=== PATIENT | female | born 1950 | race African-American/Black ===

== ENCOUNTER 2017-03-23 23:57 | Inpatient (IN) | payer MEDICARE, MEDICAID ==
[~2017-03-23] VITALS: Ht 170.2 cm; Wt 78.7 kg
[2017-03-24] MEDS ORDERED: HALOPERIDOL LACTATE 5 MG/ML VIAL IM ONE (00:15)
[2017-03-24] MEDS ORDERED: LORazepam 2 MG/ML VIAL IM ONE (00:15)
[2017-03-24] MEDS ORDERED: DiphenhydrAMINE HCL 50 MG/ML VIAL IM ONE (00:15)
[2017-03-24 00:27] LABS: BASOPHILS # (AUTO) 0.01 K/uL (0.00-0.20); BASOPHILS % (AUTO) 0.2 % (0.0-2.0); EOSINOPHILS % (AUTO) 0 % (1.0-6.0); HEMOGLOBIN 13.2 g/dL (12.0-16.0); LYMPHOCYTES # (AUTO) 1.3 K/uL (1.0-4.8); LYMPHOCYTES % (AUTO) 23.9 % (22.0-44.0); MEAN CORPUSCULAR HGB CONC 31.5 G/dL (31.0-37.0); MEAN CORPUSCULAR VOLUME 83 fL (80-100); MONOCYTES # (AUTO) 0.4 K/uL (0.1-1.0); MONOCYTES % (AUTO) 7.8 % (2.0-9.0); NEUTROPHILS # (AUTO) 3.8 K/uL (1.8-7.7); NEUTROPHILS % (AUTO) 68.1 % (40.0-70.0); PLATELET COUNT (AUTO) 180 K/uL (150-450); RED BLOOD CELL COUNT(AUTO) 5.09 MIL/uL (4.00-5.20); RED CELL DISTRIBUTION WIDTH 13.9 % (11.5-14.5)
[2017-03-24 00:37] LABS: ANION GAP 12 mmol/L (8-16); CALCIUM, TOTAL 9.8 mg/dL (8.8-10.5); CARBON DIOXIDE 27 mmol/L (22-29); CHLORIDE 100 mmol/L (98-107); CREATININE 0.96 mg/dL (0.60-1.30); GLOMERULAR FILTR. RATE CALC > 60 mL/min (>60); GLUCOSE,RANDOM 101 mg/dL (70-110); POTASSIUM 3.8 mmol/L (3.5-5.1); SODIUM SERUM 139 mmol/L (136-145); UREA NITROGEN, BLOOD 12 mg/dL (7-18)
[2017-03-24 00:43] LABS: ALANINE AMINOTRANSFERASE 40 U/L (12-78); ALBUMIN 4.5 g/dL (3.4-5.0); ALKALINE PHOSPHATASE 66 U/L (46-116); ASPARTATE AMINOTRANSFERASE 70 U/L (15-37); BILIRUBIN,TOTAL 0.8 mg/dL (0.1-1.0)
[2017-03-24 01:01] LABS: PLATELET MORPHOLOGY COMMENT GIANT PLTS PRESENT
[2017-03-24] MEDS ORDERED: HALOPERIDOL 5 MG TABLET PO PRN (01:15)
[2017-03-24] MEDS ORDERED: ZOLPIDEM TARTRATE 10 MG TABLET PO PRN (01:15)
[2017-03-24 04:08] VITALS: BP 111/74
[2017-03-24] MEDS ORDERED: PNEUMOCOCCAL VACCINE POLYVALENT 0.5 ML VIAL [PPSV23] IM ONE (05:00)
[2017-03-24 08:05] VITALS: BP 140/64
[2017-03-24] MEDS: RisperiDONE 1 MG TABLET PO SCH (16:35)
[2017-03-24 17:31] VITALS: BP 130/75
[2017-03-25 05:46] VITALS: BP 142/84
[2017-03-25 08:36] LABS: CHOL/HDL RATIO 2.2 (3.9-5.7)
[2017-03-25] MEDS: RisperiDONE 1 MG TABLET PO SCH ×2 (08:42→16:30)
[2017-03-25 10:05] VITALS: BP 168/97
[2017-03-25 17:26] VITALS: BP 138/85
[2017-03-25] MEDS: LORazepam 2 MG TABLET PO PRN (19:05)
[2017-03-26 08:00] VITALS: BP 130/81
[2017-03-26] MEDS: RisperiDONE 1 MG TABLET PO SCH ×2 (08:01→17:49)
[2017-03-26 16:00] VITALS: BP 150/91
[2017-03-26] MEDS: OXcarbazepine 300 MG TABLET PO SCH (17:49)
[2017-03-27 05:21] VITALS: BP 143/96
[2017-03-27] MEDS: OXcarbazepine 300 MG TABLET PO SCH ×2 (08:52→16:06)
[2017-03-27] MEDS: RisperiDONE 1 MG TABLET PO SCH ×2 (08:52→16:06)
[2017-03-27 09:24] VITALS: BP 149/80
[2017-03-27 16:00] VITALS: BP 153/95
[2017-03-27] MEDS: LORazepam 2 MG TABLET PO PRN (16:07)
[2017-03-28] MEDS: RisperiDONE 1 MG TABLET PO SCH ×2 (08:26→16:26)
[2017-03-28] MEDS: OXcarbazepine 300 MG TABLET PO SCH ×2 (08:26→16:26)
[2017-03-28 09:10] VITALS: BP 150/97
[2017-03-28] MEDS ORDERED: CloNIDine HCL 0.1 MG TABLET PO PRN (13:30)
[2017-03-28 17:16] VITALS: BP 160/91
[2017-03-29 06:22] VITALS: BP 147/94
[2017-03-29 08:15] VITALS: BP 171/92
[2017-03-29] MEDS: OXcarbazepine 300 MG TABLET PO SCH ×2 (09:18→17:25)
[2017-03-29] MEDS: RisperiDONE 1 MG TABLET PO SCH ×2 (09:18→17:25)
[2017-03-29 20:00] VITALS: BP 131/93
[2017-03-30] MEDS: RisperiDONE 1 MG TABLET PO SCH ×2 (08:16→16:48)
[2017-03-30] MEDS: OXcarbazepine 300 MG TABLET PO SCH ×2 (08:16→16:48)
[2017-03-30 09:29] VITALS: BP 132/87
[2017-03-30 16:00] VITALS: BP 151/96
[2017-03-31 06:56] VITALS: BP 147/94
[2017-03-31] MEDS: OXcarbazepine 300 MG TABLET PO SCH ×2 (09:01→17:01)
[2017-03-31] MEDS: RisperiDONE 1 MG TABLET PO SCH ×2 (09:01→17:01)
[2017-03-31 20:44] VITALS: BP 139/68
[2017-04-01] MEDS: OXcarbazepine 300 MG TABLET PO SCH (10:03)
[2017-04-01] MEDS: RisperiDONE 1 MG TABLET PO SCH (10:03)
[2017-04-01] MEDS ORDERED: OXCA300T PO (11:47)
[2017-04-01] MEDS ORDERED: RISP1 PO (11:47)
== END 2017-04-01 17:00 | disposition home or self-care (01) | DRG 885 ==
LOC: EMS 23:57 → 3EC 03-24 02:37 → 3EI 03-26 19:00
PROVIDERS: ADMIT Psychiatry & Neurology Child & Adolescent Psychiatry; ATTEND Psychiatry & Neurology Child & Adolescent Psychiatry
DX: F25.0 Schizoaffective disorder, bipolar type (principal); R74.0 Nonspecific elevation of levels of transaminase and lactic acid dehydrogenase [LDH]; F10.10 Alcohol abuse, uncomplicated; F41.9 Anxiety disorder, unspecified; Z91.14 Patient's other noncompliance with medication regimen
CPT/HCPCS: 96372; 99285; G0480; J1200; J1630; J2060